=== PATIENT | male | born 1990 | race American Indian/Alaskan Native ===

== ENCOUNTER 2017-09-09 10:38 | Emergency (ER) | payer MEDICARE ==
[2017-09-09 11:03] VITALS: BP 152/85
[2017-09-09] MEDS ORDERED: DUONEB *Not for PRN Use IH ONE (11:15)
[2017-09-09] MEDS ORDERED: ZOFRAN ODT PO ONE (11:15)
--- NOTE | 2017-09-09 11:19 | Emergency Department Report ---
Chief Complaint: Nausea/Vomiting/Diarrhea Stated Complaint: STOMACH VIRUS - HPI History of Present Illness: 27-year-old male past medical history bronchitis, smoker, bipolar disorder presents with complaint of intermittent episodes of nausea and vomiting with stomach upset over weekend. Also complaining of slight dry nonproductive cough with sore throat and runny nose. Patient states he is able to tolerate water but has some difficulty tolerating solids. - ROS Review of Systems: When he knows, sore throat, intermittent nausea and vomiting for 2 days - Exam Vital Signs: Vital Signs 09/09/17 10:57 Temperature 98.6 F Pulse Rate 86 Respiratory 20 Rate Blood Pressure 152/85 O2 Sat by Pulse 93 Oximetry Physical Exam: Some tonsillar erythema on exam Abdomen soft and nontender, obese MSE screening note: Focused history and physical exam performed. Due to findings the following was ordered: Screening Assessment/Plan/Differential Dx: Upper respiratory infection versus gastroenteritis versus flu versus pharyngitis 1- This initial assessment/diagnostic orders/clinical plan/ treatment(s) is/are subject to change based on pt's health status, clinical progression and re- assessment by fellow clinical providers in the ED. Further treatment and workup at subsequent clinical provers discretion. Patient/guardians urged not to elope from ED as their condition may be serious if not clinically assessed and managed. 2-strep and flu swabs sent 3-abdominal labs sent 4-patient has some wheezing on exam will order DuoNeb and Zofran for nausea ED Disposition for MSE Condition: Stable
--- NOTE | 2017-09-09 12:06 | Emergency Department Report ---
HPI - General Chief Complaint: Nausea/Vomiting/Diarrhea Time Seen by Provider: 09/09/17 11:33 - HPI HPI: Patient here reports that he has a history of bronchitis and sleep apnea. Patient complained that he was having some abdominal cramping with nausea and vomiting with diarrhea. He was also complaining of headache when he woke up this morning in headache as 7 out of 10 comes and goes. Last episode of headache was this morning and none since. He said headache is achy when it's there. Patient states that he had no vomiting today. He said he had one episode of diarrhea today. Patient denies any fever or chills. Pain is generalized abdomen achy and no [id number] medication taken. Denies any urinary burning frequency or urgency. Denies any shortness of breath or chest tightness. He reports that he has cough and wheeze and period patient is a smoker. Patient is also complaining nasal congestion and runny nose that started 2 weeks ago but nausea vomiting and diarrhea and headache started on Friday which was 3 days ago. ED Past Medical Hx - Past Medical History Previous Medical History?: Yes Hx Psychiatric Treatment: Yes (Bipolar) Additional medical history: Bronchitis, Sleep apnea - Surgical History Past Surgical History?: Yes Additional Surgical History: Left eye, Left foot surgery - Family History Family history: diabetes, hypertension - Social History Smoking Status: Current Every Day Smoker Substance Use Type: Prescribed - Medications Home Medications: Home Medications Medication Instructions Recorded Confirmed Last Taken Type ALBUTEROL Inhaler [ProAir HFA 2 puff IH QID PRN 30 Days #1 09/09/17 Unknown Rx Inhaler] inhalation Amoxicillin/K Clav Tab [Augmentin 1 tab PO Q12HR 10 Days #20 tab 09/09/17 Unknown Rx 875 mg] Cetirizine HCl [ZyrTEC] 10 mg PO QAM 14 Days #14 capsule 09/09/17 Unknown Rx Fluticasone [Flonase] 1 spray NS QDAY 14 Days #1 bottle 09/09/17 Unknown Rx Promethazine [Phenergan TAB] 25 mg PO Q8HR PRN 4 Days #12 tab 09/09/17 Unknown Rx methylPREDNISolone [Medrol] 4 mg PO QAM 6 Days #1 tab.ds.pk 09/09/17 Unknown Rx ED Review of Systems ROS: Stated complaint: STOMACH VIRUS Other details as noted in HPI Comment: All other systems reviewed and negative Constitutional: no symptoms reported ENT: throat pain, congestion (nasal congestion and runny nose). denies: ear pain Respiratory: cough, wheezing. denies: orthopnea, shortness of breath, SOB with exertion, SOB at rest, stridor Cardiovascular: denies: chest pain, palpitations, dyspnea on exertion, edema, syncope, paroxysmal nocturnal dyspnea Gastrointestinal: abdominal pain, nausea, vomiting, diarrhea. denies: constipation, hematemesis, melena, hematochezia Genitourinary: denies: urgency, dysuria, frequency, hematuria, discharge, testicular pain, testicular mass Musculoskeletal: denies: back pain, joint swelling, arthralgia, myalgia Skin: denies: rash Neurological: headache. denies: weakness, numbness, paresthesias, confusion, abnormal gait, vertigo, other Physical Exam - Physical Exam Vital Signs: Vital Signs 09/09/17 09/09/17 09/09/17 10:57 11:43 11:48 Temperature 98.6 F Pulse Rate 86 Pulse Rate [ 85 88 Bilateral Upper Lobe] Respiratory 20 Rate Respiratory 18 18 Rate [Bilateral Upper Lobe] Blood Pressure 152/85 O2 Sat by Pulse 93 Oximetry General: 27-year-old male with morbid obesity. No acute distress. Nourished well developed. Physical Exam: Head: Normocephalic, atraumatic. Eyes: Biateral pupils equal and reactive to light, bilateral EOM intact.. Bilateral conjunctival and sclera without injection, normal accommodation. Nose: Clear drainage, congested without erythema, no frontal or maxillary sinus tenderness. Mouth: Patient with mild erythema to pharyngeal area. No exudate. No peritonsillar abscess. Tongue is normal, no drooling. Oral airways patent and uvula is midline. Ears: Bilateral TM congested without erythema. Bilateral tragus nontender to palpate. Bilateral EAC without any redness swelling and draining. Neck: Supple, No Cervical adenopathy, full range of motion and no C-spine tenderness. laterally/posteriorly. No tracheal deviation normal reflexes Cardiovascular: S1, S2. Regular rate and rhythm. No murmur. Capillary refill is less then 3 seconds. Lungs: Scattered wheezes and to lung delacruz with dry cough .no rhonchi or rales. No chest wall tenderness. No use of accessory muscles MSK: Strength 5/5 in all extremities. No joint deformity or crepitus. Normal inspection. Full range of motion to all extremities. Abdomen: Non-tender to palpate in all quadrants, no guarding or rebound tenderness, positive bowel sounds in all quadrants. No CVA tenderness. No hernia, bruit or mass. No rigidity or distention. Trunchal obesity . Extremities: No clubbing, cyanosis or edema. +2 pulses. No neurovascular compromise Skin: Clean, dry and intact. No rash or lesions. Neurological: GCS at 15, Pt is alert and oriented 3 speech is clear period. 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 Normal gait. Negative Romberg and no pronator drift. Normal Reflexes. No motor or sensory deficit Psych: Normal mood and behavior ED Course Vital Signs 09/09/17 09/09/17 09/09/17 10:57 11:43 11:48 Temperature 98.6 F Pulse Rate 86 Pulse Rate [ 85 88 Bilateral Upper Lobe] Respiratory 20 Rate Respiratory 18 18 Rate [Bilateral Upper Lobe] Blood Pressure 152/85 O2 Sat by Pulse 93 Oximetry - Reevaluation(s) Reevaluation #1: 09/09/17 13:31 Patient received DuoNeb 1 nebulized in emergency room which relieved his wheezing. He had no episode of nausea or vomiting in emergency room. Patient was given Zofran 4 mg ODT and triage area. Patient able to tolerate 480 mL of orange juice without any vomiting or diarrhea. Patient said he feels much better. ED Medical Decision Making - Lab Data Result diagrams: 09/09/17 11:54 09/09/17 11:54 Lab Results 09/09/17 09/09/17 09/09/17 Range/Units 11:54 11:54 12:30 WBC 6.5 (4.5-11.0) K/mm3 RBC 5.93 H (3.65-5.03) M/mm3 Hgb 16.9 H (11.8-15.2) gm/dl Hct 51.9 H (35.5-45.6) % MCV 88 (84-94) fl MCH 28 (28-32) pg MCHC 33 (32-34) % RDW 14.7 (13.2-15.2) % Plt Count 271 (140-440) K/mm3 Lymph % (Auto) 46.7 H (13.4-35.0) % Gilchrist % (Auto) 12.0 H (0.0-7.3) % Eos % (Auto) 1.6 (0.0-4.3) % Baso % (Auto) 0.8 (0.0-1.8) % Lymph # 3.0 (1.2-5.4) K/mm3 Gilchrist # 0.8 (0.0-0.8) K/mm3 Eos # 0.1 (0.0-0.4) K/mm3 Baso # 0.0 (0.0-0.1) K/mm3 Seg Neutrophils % 38.9 L (40.0-70.0) % Seg Neutrophils # 2.5 (1.8-7.7) K/mm3 Sodium 139 (137-145) mmol/L Potassium 4.4 (3.6-5.0) mmol/L Chloride 99.9 (98-107) mmol/L Carbon Dioxide 25 (22-30) mmol/L Anion Gap 19 mmol/L BUN 10 (9-20) mg/dL Creatinine 0.7 L (0.8-1.5) mg/dL Estimated GFR > 60 ml/min BUN/Creatinine Ratio 14 % Glucose 82 (75-100) mg/dL Calcium 9.5 (8.4-10.2) mg/dL Total Bilirubin 0.30 (0.1-1.2) mg/dL Direct Bilirubin < 0.2 (0-0.2) mg/dL AST 25 (5-40) units/L ALT 28 (7-56) units/L Alkaline Phosphatase 71 (35-129) units/L Total Protein 7.8 (6.3-8.2) g/dL Albumin 4.1 (3.9-5) g/dL Albumin/Globulin Ratio 1.1 % Amylase 55 (27-131) units/L Lipase 25 (13-60) units/L Urine Color Yellow (Yellow) Urine Turbidity Clear (Clear) Urine pH 6.0 (5.0-7.0) Ur Specific Orion 1.025 (1.003-1.030) Urine Protein <15 mg/dl (Negative) mg/dL Urine Glucose (UA) Neg (Negative) mg/dL Urine Ketones Neg (Negative) mg/dL Urine Blood Neg (Negative) Urine Nitrite Neg (Negative) Urine Bilirubin Neg (Negative) Urine Urobilinogen < 2.0 (<2.0) mg/dL Ur Leukocyte Esterase Neg (Negative) Urine WBC (Auto) < 1.0 (0.0-6.0) /HPF Urine RBC (Auto) 1.0 (0.0-6.0) /HPF Urine Mucus Few /HPF - Radiology Data Radiology results: report reviewed X-ray reveals no acute cardiopulmonary processes - Medical Decision Making ED Course: Complained and nausea vomiting and diarrhea with abdominal cramping in that started over the weekend. He reports that it comes and goes. Patient also report that he's been having nasal congestion and runny nose over the last 2 weeks. Patient had no episode of nausea or vomiting today. He said he had one episode of diarrhea stool. Denies any abdominal cramping upon examination and he's with normal abdominal exam except for truncal obesity. Patient has a history of chronic bronchitis and sleep apnea and he was found to have scattered wheezes and upper lung delacruz and was given DuoNeb 1 nebulized treatment for cough and wheeze and and Zofran 4 mg ODT in triage area. Patient' s voice that he feels much better. I discussed lab results and x-ray results with him and also discussed smoking cessation and obesity. He is referred to lab section for details and lab results and cx-ray report under radiology section. Patient discharged home in stable condition from emergency room to follow up with primary care physician in 2-3 days. Prescription given for Phenergan, Augmentin, Flonase, Zyrtec, Medrol Dosepak and albuterol HFA. Critical care attestation.: If time is entered above; I have spent that time in minutes in the direct care of this critically ill patient, excluding procedure time. ED Disposition Clinical Impression: Nausea, vomiting and diarrhea, Abdominal cramping, Cough with congestion of paranasal sinus, Bronchitis, Obesity, morbid, BMI 50 or higher, Nicotine abuse Disposition: DC-01 TO HOME OR SELFCARE Is pt being admited?: No Does the pt Need Aspirin: No Condition: Stable Instructions: Chronic Bronchitis (ED), Acute Nausea and Vomiting (ED), Abdominal Pain (ED), Nutrition Tips for Relief of Diarrhea (ED), Gastroenteritis (ED), Weight Loss Tips for Athletes (ED), Weight Management (ED) , How to Stop Smoking (ED) Additional Instructions: Please stop smoking. See discharge instruction on smoking cessation Increasing fluid intake to 2-3 L of water per day. See discharge instruction on nutritional tips and weight management Follow up with primary care physician in 2-3 days and if he do not have one he can follow-up at [facility] Take All medication as prescribed. Prescriptions: ALBUTEROL Inhaler [ProAir HFA Inhaler] 2 puff IH QID PRN 30 Days #1 inhalation PRN Reason: COUGH/WHEEZE Amoxicillin/K Clav Tab [Augmentin 875 mg] 1 tab PO Q12HR 10 Days #20 tab Cetirizine HCl [ZyrTEC] 10 mg PO QAM 14 Days #14 capsule Fluticasone [Flonase] 1 spray NS QDAY 14 Days #1 bottle methylPREDNISolone [Medrol] 4 mg PO QAM 6 Days #1 tab.ds.pk Promethazine [Phenergan TAB] 25 mg PO Q8HR PRN 4 Days #12 tab PRN Reason: Nausea Referrals: KLAUDIA CASH MD [Primary Care Provider] - 2-3 Days [facility] [Outside] - 2-3 Days Forms: Work/School Release Form(ED)
[2017-09-09 12:15] LABS: Basophils % (Auto) 0.8 % (0.0-1.8); Eosinophils % (Auto) 1.6 % (0.0-4.3); Hematocrit 51.9 % (35.5-45.6); Hemoglobin 16.9 gm/dl (11.8-15.2); Mean Corpuscular HGB Conc 33 % (32-34); Mean Corpuscular Hemoglobin 28 pg (28-32); Mean Corpuscular Volume 88 fl (84-94); Platelet Count 271 K/mm3 (140-440); Red Blood Count 5.93 M/mm3 (3.65-5.03); Red Cell Distribution Width 14.7 % (13.2-15.2); White Blood Count 6.5 K/mm3 (4.5-11.0)
--- NOTE | 2017-09-09 12:24 | XRay Report ---
ROUTINE CHEST, TWO VIEWS: HISTORY: Cough. The trachea, heart, mediastinal contour, lung delacruz and bony thorax are unremarkable. IMPRESSION: Unremarkable chest x-ray.
[2017-09-09 12:29] LABS: Alanine Aminotransferase 28 units/L (7-56); Albumin 4.1 g/dL (3.9-5); Albumin/Globulin Ratio 1.1 %; Alkaline Phosphatase 71 units/L (35-129); Amylase 55 units/L (27-131); Anion Gap 19 mmol/L; BUN/Creatinine Ratio 14; Blood Urea Nitrogen 10 mg/dL (9-20); Calcium 9.5 mg/dL (8.4-10.2); Carbon Dioxide 25 mmol/L (22-30); Chloride 99.9 mmol/L (98-107); Glucose 82 mg/dL (75-100); Lipase 25 units/L (13-60); Potassium 4.4 mmol/L (3.6-5.0); Sodium 139 mmol/L (137-145); Total Protein 7.8 g/dL (6.3-8.2)
[2017-09-09 12:34] LABS: Bilirubin,Direct < 0.2 mg/dL (0-0.2)
[2017-09-09 12:47] LABS: Bilirubin,Urine NEG (Negative); Blood,Urine NEG (Negative); Ketones,Urine NEG (Negative); Leukocyte Esterase,Urine NEG (Negative); Mucus,Urine FEW /HPF; Nitrite,Urine NEG (Negative); Protein,Urine <15 mg/dL mg/dL (Negative); Urobilinogen,Urine < 2.0 mg/dL (<2.0); WBC,Urine < 1.0 /HPF (0.0-6.0)
== END 2017-09-09 13:50 | disposition home or self-care (01) ==
LOC: ED 10:38
DX: R10.84 Generalized abdominal pain (principal); R11.2 Nausea with vomiting, unspecified; R19.7 Diarrhea, unspecified; R05 Cough; J40 Bronchitis, not specified as acute or chronic; F17.200 Nicotine dependence, unspecified, uncomplicated; E66.01 Morbid (severe) obesity due to excess calories; F31.9 Bipolar disorder, unspecified; Z68.43 Body mass index [BMI] 50.0-59.9, adult
CPT/HCPCS: 36415; 71020; 80048; 80074; 81001; 82150; 83690; 85025; 87086; 87116; 87400; 87430; 94640; Q0162